=== PATIENT | female | born 1990 | race Caucasian/White ===

== ENCOUNTER 2017-12-08 11:37 | Emergency (ER) | payer OTHER ==
[2017-12-08] MEDS ORDERED: Sodium Chloride 0.9% 1000 ML 1,000 ML IV STA (12:01)
--- NOTE | 2017-12-08 12:08 | ERPHSYRPT ---
- History of Present Illness Time Seen by Provider: 12/08/17 12:02 Source: patient Exam Limitations: no limitations Physician History: 27-year-old white female with history of chronic back and neck pain history of headaches who has seen Dr. ibarra for neck pain and back pain and has had a MRI several months ago. Also with a history of chronic right-sided weakness again which has been worked up by Dr. ibarra. Arrives with complaint of a headache symptoms going on for several days she states she's had a fever she has no vomiting no photophobia Patient states she had a fever at home She presented to Dr. Bermudez's office was noted to have a temperature around 98 Sent here for further workup. Past medical history includes chronic back and neck pain for several months weakness in the right side or several months Headaches Past surgical history includes . Timing/Duration: day(s) (2-3 days) Severity: moderate Modifying Factors: Improves With: nothing Associated Symptoms: fever, headaches, other (chronic right-sided weakness, chronic back and neck pain), No denies symptoms, No nausea, No vomiting, No abdominal pain, No shortness of breath, No heartburn, No diaphoresis, No cough, No chills, No chest pain, No loss of appetite, No malaise, No rash, No syncope, No seizure, No weakness Allergies/Adverse Reactions: No Known Drug Allergies Allergy (Verified 12/08/17 11:52) Home Medications: Gabapentin 800 mg PO TID 12/08/17 [History] Meloxicam 15 mg [Meloxicam 15 MG] 15 mg PO UD 12/08/17 [History] Sumatriptan Succinate [Imitrex] 100 mg PO UD 12/08/17 [History] Tizanidine HCl 4 mg PO DAILY 12/08/17 [History] Topiramate 50 mg PO BID 12/08/17 [History] Hx Tetanus, Diphtheria Vaccination/Date Given: No Hx Influenza Vaccination/Date Given: No Hx Pneumococcal Vaccination/Date Given: No - Review of Systems Constitutional: Fever, No Chills, No Fatigue, No Lethargy, No Night Sweats, No Weakness, No Weight Loss Eyes: No Symptoms Ears, Nose, & Throat: No Symptoms Respiratory: No Cough, No Dyspnea Cardiac: No Chest Pain, No Edema, No Syncope Abdominal/Gastrointestinal: No Abdominal Pain, No Nausea, No Vomiting, No Diarrhea Genitourinary Symptoms: No Dysuria Musculoskeletal: Back Pain (chronic back pain), Neck Pain (Chronic neck pain), No Deformity, No Fall, No Injury, No Joint Redness, No Joint Pain, No Joint Swelling, No Myalgias Skin: No Rash Neurological: Headache, Other (Chronic neck and back pain, chronic right upper extremity weakness 2-3 months) Psychological: No Symptoms Endocrine: No Symptoms All Other Systems: Reviewed and Negative - Past Medical History Pertinent Past Medical History: No Neurological History: Other (chronic right upper extremity weakness, headaches) Musculoskeletal History: Other (chronic back and neck pain) - Past Surgical History Past Surgical History: Yes Female Surgical History: Section - Social History Smoking Status: Never smoker Exposure to second hand smoke: No Drug Use: none Patient Lives Alone: No - Nursing Vital Signs Nursing Vital Signs: Initial Vital Signs Blood Pressure 116/82 12/08/17 11:40 Pain Scale Pain Intensity 4 - Physical Exam General Appearance: no apparent distress, alert Eye Exam: PERRL/EOMI, eyes nml inspection Ears, Nose, Throat Exam: normal ENT inspection, TMs normal, pharynx normal, moist mucous membranes Neck Exam: normal inspection, non-tender, other (patient states neck chronically painfull with movement) Respiratory Exam: normal breath sounds, lungs clear, No respiratory distress Cardiovascular Exam: regular rate/rhythm, normal heart sounds, normal peripheral pulses Gastrointestinal/Abdomen Exam: soft, normal bowel sounds, No tenderness, No mass Back Exam: normal inspection, normal range of motion, No CVA tenderness, No vertebral tenderness Extremity Exam: normal inspection, normal range of motion, pelvis stable Neurologic Exam: alert, oriented x 3, cooperative, 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), No motor deficits Skin Exam: normal color, warm, dry, No rash SpO2 Interpretation: normal (97%), borderline oxygenation SpO2: 97 Oxygen Delivery: Room Air - Course Nursing assessment & vital signs reviewed: Yes - CT Exams Head CT Interpretation: Discussed w/radiologist (CT head without contrast: Impression : No acute intracranial abnormality is seen) Ordered Tests: Active Orders 24 hr Category Date Time Status IV Insertion STAT Care 12/08/17 12:01 Active HEAD WITHOUT CONTRAST [CT] Stat Exams 12/08/17 13:06 Completed BLOOD CULTURE Stat Lab 12/08/17 12:25 Received CBC W DIFF Stat Lab 12/08/17 12:15 Completed CMP Stat Lab 12/08/17 12:15 Completed CULTURE,URINE Routine Lab 12/08/17 12:30 Received HCG QUALITATIVE,SERUM Stat Lab 12/08/17 12:15 Completed UA W/RFX UR CULTURE Stat Lab 12/08/17 12:10 Completed Urine Triage Profile Stat Lab 12/08/17 12:10 Completed Medication Summary Discontinued Medications Generic Name Dose Route Start Last Admin Trade Name Freq PRN Reason Stop Dose Admin Diphenhydramine HCl 25 mg 12/08/17 13:06 12/08/17 13:24 Benadryl 50 Mg/Ml IV 12/08/17 13:07 25 mg STAT ONE Administration Diphenhydramine HCl Confirm 12/08/17 13:22 Benadryl 50 Mg/Ml Administered 12/08/17 13:23 Dose 50 mg .ROUTE .STK-MED ONE Sodium Chloride 1,000 mls @ 999 mls/hr 12/08/17 12:01 12/08/17 12:23 Sodium Chloride 0.9% 1000 Ml IV 12/08/17 13:01 999 mls/hr .Q1H1M STA Administration Sodium Chloride Confirm 12/08/17 12:22 Sodium Chloride 0.9% 1000 Ml Administered 12/08/17 12:23 Dose 1,000 mls @ ud .ROUTE .STK-MED ONE Metoclopramide HCl 10 mg 12/08/17 13:06 12/08/17 13:24 Reglan 10 Mg/2 Ml IV 12/08/17 13:07 10 mg STAT ONE Administration Metoclopramide HCl Confirm 12/08/17 13:22 Reglan 10 Mg/2 Ml Administered 12/08/17 13:23 Dose 10 mg .ROUTE .STK-MED ONE Lab/Rad Data: Laboratory Result Diagrams 12/08/17 12:15 12/08/17 12:15 Laboratory Results 12/08/17 12/08/17 12/08/17 Range/Units 12:20 12:15 12:15 WBC (4.0-10.5) K/mm3 RBC (4.1-5.4) M/mm3 Hgb (12.0-16.0) gm/dl Hct (35-47) % MCV (78-100) fl MCH (26-32) pg MCHC (32-36) g/dl RDW (11.5-14.0) % Plt Count (150-450) K/mm3 MPV (6-9.5) fl Gran % (36.0-66.0) % Eos # (Auto) (0-0.5) Absolute Lymphs (auto) (1.0-4.6) Absolute Monos (auto) (0.0-1.3) Lymphocytes % (24.0-44.0) % Monocytes % (0.0-12.0) % Eosinophils % (0.00-5.0) % Basophils % (0.0-0.4) % Absolute Granulocytes (1.4-6.9) Basophils # (0-0.4) Sodium 141 (137-145) mmol/L Potassium 3.5 (3.5-5.1) mmol/L Chloride 100 (98-107) mmol/L Carbon Dioxide 26 (22-30) mmol/L Anion Gap 18.5 H (5-15) MEQ/L BUN 10 (7-17) mg/dL Creatinine 0.95 (0.52-1.04) mg/dL Estimated GFR > 60.0 ML/MIN Glucose 110 H (74-106) mg/dL Calcium 9.8 (8.4-10.2) mg/dL Total Bilirubin 0.60 (0.2-1.3) mg/dL AST 22 (14-36) U/L ALT 17 (0-35) U/L Alkaline Phosphatase 75 (38-126) U/L Serum Total Protein 8.6 H (6.3-8.2) g/dL Albumin 5.1 H (3.5-5.0) g/dL Serum , Qual NEGATIVE (Negative) Ur Collection Type Urine Color (YELLOW) Urine Appearance (CLEAR) Urine pH (5-6) Ur Specific [place] (1.005-1.025) Urine Protein (Negative) Urine Ketones (NEGATIVE) Urine Blood (0-5) Nitin/ul Urine Nitrite (NEGATIVE) Urine Bilirubin (NEGATIVE) Urine Urobilinogen (0-1) mg/dL Ur Leukocyte Esterase (NEGATIVE) Urine WBC (Auto) (0-5) /HPF U Epithel Cells (Auto) (FEW) /HPF Urine Bacteria (Auto) (NEGATIVE) /HPF Urine Mucus (Auto) (NEGATIVE) /HPF Urine Culture Reflexed (NO) Urine Glucose (NEGATIVE) mg/dL Urine Opiates Level (NEGATIVE) Ur Methadone (NEGATIVE) Urine Barbiturates (NEGATIVE) Ur Phencyclidine (PCP) (NEGATIVE) Urine Amphetamine (NEGATIVE) U Benzodiazepine Level (NEGATIVE) Urine Cocaine (NEGATIVE) Urine Marijuana (THC) (NEGATIVE) Group A Strep Antibody NEGATIVE (NEGATIVE) 12/08/17 12/08/17 12/08/17 Range/Units 12:15 12:10 12:10 WBC 13.0 H (4.0-10.5) K/mm3 RBC 4.76 (4.1-5.4) M/mm3 Hgb 15.6 (12.0-16.0) gm/dl Hct 46.1 (35-47) % MCV 96.8 (78-100) fl MCH 32.8 H (26-32) pg MCHC 33.8 (32-36) g/dl RDW 12.4 (11.5-14.0) % Plt Count 196 (150-450) K/mm3 MPV 11.3 H (6-9.5) fl Gran % 85.7 H (36.0-66.0) % Eos # (Auto) 0 (0-0.5) Absolute Lymphs (auto) 0.79 L (1.0-4.6) Absolute Monos (auto) 1.05 (0.0-1.3) Lymphocytes % 6.1 L (24.0-44.0) % Monocytes % 8.1 (0.0-12.0) % Eosinophils % 0.0 (0.00-5.0) % Basophils % 0.1 (0.0-0.4) % Absolute Granulocytes 11.13 H (1.4-6.9) Basophils # 0.01 (0-0.4) Sodium (137-145) mmol/L Potassium (3.5-5.1) mmol/L Chloride (98-107) mmol/L Carbon Dioxide (22-30) mmol/L Anion Gap (5-15) MEQ/L BUN (7-17) mg/dL Creatinine (0.52-1.04) mg/dL Estimated GFR ML/MIN Glucose (74-106) mg/dL Calcium (8.4-10.2) mg/dL Total Bilirubin (0.2-1.3) mg/dL AST (14-36) U/L ALT (0-35) U/L Alkaline Phosphatase (38-126) U/L Serum Total Protein (6.3-8.2) g/dL Albumin (3.5-5.0) g/dL Serum , Qual (Negative) Ur Collection Type CLEAN CATCH Urine Color STRAW (YELLOW) Urine Appearance CLOUDY (CLEAR) Urine pH 7.0 (5-6) Ur Specific [place] 1.002 (1.005-1.025) Urine Protein NEGATIVE (Negative) Urine Ketones NEGATIVE (NEGATIVE) Urine Blood SMALL (0-5) Nitin/ul Urine Nitrite NEGATIVE (NEGATIVE) Urine Bilirubin NEGATIVE (NEGATIVE) Urine Urobilinogen 2 (0-1) mg/dL Ur Leukocyte Esterase NEGATIVE (NEGATIVE) Urine WBC (Auto) 0-2 (0-5) /HPF U Epithel Cells (Auto) MODERATE (FEW) /HPF Urine Bacteria (Auto) MANY (NEGATIVE) /HPF Urine Mucus (Auto) SLIGHT (NEGATIVE) /HPF Urine Culture Reflexed NO (NO) Urine Glucose NEGATIVE (NEGATIVE) mg/dL Urine Opiates Level NEGATIVE (NEGATIVE) Ur Methadone NEGATIVE (NEGATIVE) Urine Barbiturates NEGATIVE (NEGATIVE) Ur Phencyclidine (PCP) NEGATIVE (NEGATIVE) Urine Amphetamine NEGATIVE (NEGATIVE) U Benzodiazepine Level NEGATIVE (NEGATIVE) Urine Cocaine NEGATIVE (NEGATIVE) Urine Marijuana (THC) NEGATIVE (NEGATIVE) Group A Strep Antibody (NEGATIVE) - Progress Progress: improved Progress Note: 12/08/17 13:07 27-year-old white female with history of chronic neck and back pain history of migraines Complaining of a headache for 3 days she states she's had a fever at home no fever here in the emergency room appears to be stable. 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 Loving for headaches neck pain back pain and her right starch factory laborer weakness. She was seen at Dr. Pollock's office she stated that she had a high fever at home however she has been afebrile here temperature is 99.1 vitals are stable. CBC CMP hCG UA have been ordered on this patient. She states she isn't sure if she is better after receiving IV fluids Will add Reglan 10 mg and Benadryl 25 mg IV. Will obtain head CT on this patient. 12/08/17 14:[address] within normal limits no acute changes Patient's chemistry sodium 141 potassium 3.5 chloride 100 bicarbonate 26 BUN 10 creatinine 0.95 glucose 110 HCG is negative CBC white count mildly elevated 13.0 hemoglobin 15.6 hematocrit 46.1 platelets 196 Urinalysis specific gravity 1.002 pH 7.0. Urine drug screen is negative. Patient has been stable since arrival she is afebrile she states she is feeling better after Reglan and Benadryl. I've discussed the patient's case with Dr. pollock Will plan to release patient home she is to take her medications as prescribed by Dr. ibarra/Dr. Pollock. She is to contact Dr. Pollock office to arrange follow-up. - Departure Time of Disposition: 15:20 Departure Disposition: Home Clinical Impression: History of migraine, history of chronic rightue weakness, Neck pain, history of chronic back / neck pain, Fever at home Headache Qualifiers: Headache type: unspecified Headache chronicity pattern: acute headache Intractability: not intractable Qualified Code(s): R51 - Headache Condition: Fair Critical Care Time: No Referrals: PER POLLOCK [Primary Care Provider] - Additional Instructions: Return home. Plenty of fluids. Continue medications as prescribed by Dr. ibarra/your family doctor (Dr. Pollock) Follow-up with Dr. Pollock called and arrange follow-up appointment. Return for acute distress or for severe symptoms.
[2017-12-08] MEDS ORDERED: Sodium Chloride 0.9% 1000 ML 1,000 ML ONE (12:22)
[2017-12-08 12:42] LABS: BASOPHIL % 0.1 % (0.0-0.4); Basophil (Absolute #) 0.01 (0-0.4); Eosinophil (Absolute #) 0 (0-0.5); Granulocyte Absolute (ANC) 11.13 (1.4-6.9); Granulocytes % 85.7 % (36.0-66.0); Hematocrit 46.1 % (35-47); Hemoglobin 15.6 gm/dl (12.0-16.0); Lymphocyte (Absolute #) 0.79 (1.0-4.6); Lymphocytes % 6.1 % (24.0-44.0); Mean Cell Volume 96.8 fl (78-100); Mean Corpuscular Hemoglobin 32.8 pg (26-32); Mean Corpuscular Hgb Concent. 33.8 g/dl (32-36); Mean Platelet Volume 11.3 fl (6-9.5); Monocyte (Absolute #) 1.05 (0.0-1.3); Monocytes % 8.1 % (0.0-12.0); Platelet Count 196 K/mm3 (150-450); Red Blood Count 4.76 M/mm3 (4.1-5.4); Red Cell Distribution Width 12.4 % (11.5-14.0)
[2017-12-08 12:42] LABS: Appearance CLOUDY (CLEAR); Bilirubin NEGATIVE (NEGATIVE); Blood SMALL Ery/ul (0-5); Glucose NEGATIVE (NEGATIVE); Ketones NEGATIVE (NEGATIVE); Leukocyte Esterase NEGATIVE (NEGATIVE); Nitrite NEGATIVE (NEGATIVE); Protein,Urine Dip NEGATIVE (Negative); Specific Gravity 1.002 (1.005-1.025); Urobilinogen 2 mg/dL (0-1)
[2017-12-08 12:59] LABS: Amphetamine,Urine NEGATIVE (NEGATIVE); Barbiturate,Urine NEGATIVE (NEGATIVE); Benzodiazepine,Urine NEGATIVE (NEGATIVE); Cocaine,Urine NEGATIVE (NEGATIVE); Methadone,Urine NEGATIVE (NEGATIVE); Opiate,Urine NEGATIVE (NEGATIVE); PCP,Urine NEGATIVE (NEGATIVE); THC,Urine NEGATIVE (NEGATIVE)
[2017-12-08] MEDS ORDERED: Reglan 10 MG/2 ML IV ONE (13:06)
[2017-12-08] MEDS ORDERED: BENADRYL 50 MG/ML IV ONE (13:06)
[2017-12-08] MEDS ORDERED: Reglan 10 MG/2 ML ONE (13:22)
[2017-12-08] MEDS ORDERED: BENADRYL 50 MG/ML ONE (13:22)
[2017-12-08 13:55] LABS: ALBUMIN 5.1 g/dL (3.5-5.0); ALKALINE PHOSPHATASE 75 U/L (38-126); BLOOD UREA NITROGEN 10 mg/dL (7-17); CHLORIDE 100 mmol/L (98-107); Calcium 9.8 mg/dL (8.4-10.2); Carbon Dioxide 26 mmol/L (22-30); Creatinine 1 0.95 mg/dL (0.52-1.04); Glucose 110 mg/dL (74-106); SGOT/AST 22 U/L (14-36); SGPT/ALT 17 U/L (0-35); SODIUM 141 mmol/L (137-145); Total Protein 8.6 g/dL (6.3-8.2)
[2017-12-08 13:56] LABS: Potassium 3.5 mmol/L (3.5-5.1)
[2017-12-08 13:58] LABS: ANION GAP 18.5 MEQ/L (5-15)
--- NOTE | 2017-12-08 14:20 | XRAY ---
Exam: CT of the head without IV contrast from 12/08/2017. CTDI: 70.91. Comparison: None. Indication: 27-year-old female with headache for 2 months, no known injury. Technique: Non-IV contrast axial images were obtained through the brain. Reconstructed coronal and sagittal images were created and reviewed. The axial images were repeated because of motion artifact on the initial CT run. Findings: The ventricles appear of normal size and shape. No focal mass effect or midline shift is seen. No acute intracranial bleed or abnormal extra-axial fluid collection is seen. The [place] matter-white matter interfaces appear well-maintained. No low attenuation territorial infarct is seen. The cortical sulci and basilar cisterns appear unremarkable. The globes of each eye and retrobulbar regions appear unremarkable. The visualized paranasal sinuses and mastoid air cells appear clear. The calvarium of the skull is intact. Impression: 1. No acute intracranial abnormality is seen.
[2017-12-08 14:38] VITALS: PULSE 74
[2017-12-08 14:53] VITALS: O2SAT 97
[2017-12-08 15:17] VITALS: BP 119/77
== END 2017-12-08 15:25 | disposition home or self-care (01) ==
LOC: ED 11:37
DX: R51 Headache (principal); M54.2 Cervicalgia; Z79.899 Other long term (current) drug therapy; R53.1 Weakness; M54.9 Dorsalgia, unspecified
CPT/HCPCS: 36000; 36415; 70450; 80053; 80307; 81003; 84703; 85025; 87040; 87086; 87651; 96360; 96374; 96375; 99284; J1200

== ENCOUNTER 2024-05-09 15:27 | Emergency (ER) | payer OTHER ==
[2024-05-09 15:36] VITALS: TEMP 98.3
--- NOTE | 2024-05-09 15:55 | ERPHSYRPT ---
- History of Present Illness Time Seen by Provider: 05/09/24 15:40 Source: patient Exam Limitations: no limitations Patient Subjective Stated Complaint: Pt states "I went to Dr. Tineo, my family , because I have been having chest pain for the past month but the last week it has been constant and is like pressure. It feels like I got punched in the chest." Triage Nursing Assessment: Pt presented alert and oriented X 3, skin pwd. Pt ambulates with an upright steady gait, able to speak in clear full sentences. Pt resting comfortably on the bed. Physician History: 34-year-old female presents to our ED as a referral from her primary care doctor's office for evaluation of intermittent chest pain x 1 month. Patient states the pain has been constant for the past week. Pain described as a pressure primarily in the epigastric region. Sometimes it feels as though she got punched in the chest. Symptoms are localized. No radiation. No associated nausea vomiting or diaphoresis. No trauma no fever. No active chest pain at this time. Patient otherwise feels well. She voices no other complaints or concerns at this time. Portions of this note were created with voice recognition technology. There may be grammatical, spelling, punctuation or sound alike errors Timing/Duration: week(s) (1 month) Severity: moderate Modifying Factors: Improves With: nothing Associated Symptoms: denies symptoms Allergies/Adverse Reactions: No Known Drug Allergies Allergy (Verified 12/08/17 11:52) Home Medications: No Reportable Medications [No Reported Medications] 05/09/24 [History] Hx Tetanus, Diphtheria Vaccination/Date Given: No Hx Influenza Vaccination/Date Given: No Hx Pneumococcal Vaccination/Date Given: No Immunizations Up to Date: No Travel Risk - International Travel Have you traveled outside of the country in past 3 weeks: No - Emerging Infectious Disease Are you exhibiting symptoms associated with any current EIDs: No - Review of Systems Constitutional: No Symptoms, No Fever, No Chills Eyes: No Symptoms Ears, Nose, & Throat: No Symptoms Respiratory: No Symptoms, No Cough, No Dyspnea Cardiac: No Symptoms, No Chest Pain, No Edema, No Syncope Abdominal/Gastrointestinal: No Symptoms, No Abdominal Pain, No Nausea, No Vomiting, No Diarrhea Genitourinary Symptoms: No Symptoms, No Dysuria Musculoskeletal: No Symptoms, No Back Pain, No Neck Pain Skin: No Symptoms, No Rash Neurological: No Symptoms, No Dizziness, No Focal Weakness, No Sensory Changes Psychological: No Symptoms Endocrine: No Symptoms Hematologic/Lymphatic: No Symptoms Immunological/Allergic: No Symptoms All Other Systems: Reviewed and Negative - Past Medical History Pertinent Past Medical History: No Neurological History: No Pertinent History Cardiac History: No Pertinent History Respiratory History: No Pertinent History Endocrine Medical History: No Pertinent History Musculoskeletal History: Degenerative Disk Disease, Other Psycho-Social History: Depression Other Medical History: XRAYS SHOW SCOLIOSIS RIGHT WITH APEX T12, 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 UTERINE IUD, SEASONAL ALLERGIES, CARPAL TUNNEL RELEASE RIGHT - Past Surgical History Past Surgical History: Yes Female Surgical History: Section - Female History Hx Last Menstrual Period: years, IUD Hx Now: No - Social History Smoking Status: Never smoker Exposure to second hand smoke: No Drug Use: none - Social Determinants of Health Will the patient participate in the screening: Yes Do you worry about a steady place to live?: No Do you have any problems with any of the following?: No known problems In the past 12 months,have you had to go without utilities?: No Transportation Issues: Yes Has anyone in your support network made you feel unsafe?: No Have you or anyone in your house had to go w/o enough food: No - Nursing Vital Signs Nursing Vital Signs: Initial Vital Signs Temperature 98.3 F 05/09/24 15:29 Pulse Rate 74 05/09/24 15:29 Respiratory Rate 18 05/09/24 15:29 Blood Pressure 124/86 05/09/24 15:29 O2 Sat by Pulse Oximetry 96 05/09/24 15:29 Pain Scale Pain Intensity 0 - Physical Exam General Appearance: no apparent distress, alert Eye Exam: PERRL/EOMI, eyes nml inspection Ears, Nose, Throat Exam: normal ENT inspection, pharynx normal, moist mucous membranes Neck Exam: normal inspection, non-tender, supple, full range of motion Respiratory Exam: normal breath sounds, lungs clear, airway intact, No respiratory distress Cardiovascular Exam: regular rate/rhythm, normal heart sounds, normal peripheral pulses Gastrointestinal/Abdomen Exam: soft, normal bowel sounds, No tenderness, No mass Back Exam: normal inspection, normal range of motion, No CVA tenderness, No vertebral tenderness Extremity Exam: normal inspection, normal range of motion, pelvis stable Neurologic Exam: alert, oriented x 3, cooperative, normal mood/affect, nml cerebellar function, nml station & gait, sensation nml, No motor deficits Skin Exam: normal color, warm, dry, No rash Lymphatic Exam: No adenopathy SpO2 Interpretation: normal SpO2: 96 O2 Delivery: Room Air - Course Nursing assessment & vital signs reviewed: Yes EKG Interpreted by Me: RATE (73), Sinus Rhythm, NORMAL AXIS, NORMAL INTERVALS, NORMAL QRS - Radiology Exams Chest X-ray Interpretation: Interpreted by me (No acute findings) Ordered Tests: Active Orders 24 hr Category Date Time Status Mooner STAT Care 05/09/24 15:54 Active EKG-ER Only STAT Care 05/09/24 15:53 Active IV Insertion STAT Care 05/09/24 15:53 Active Pulse Oximetry (ED) STAT Care 05/09/24 15:53 Active CHEST 1 VIEW (PORTABLE) Stat Exams 05/09/24 17:05 Taken CBC W DIFF Stat Lab 05/09/24 15:52 Completed CMP Stat Lab 05/09/24 15:52 Completed D-DIMER QUANTITATIVE Stat Lab 05/09/24 15:52 Completed HCG QUALITATIVE, URINE Stat Lab 05/09/24 Ordered NT PRO BNPII Stat Lab 05/09/24 15:52 Completed TROPONIN Q4H Lab 05/09/24 15:52 Completed TROPONIN Q4H Lab 05/09/24 18:57 Completed TROPONIN Q4H Lab 05/10/24 00:00 Ordered Lab/Rad Data: Laboratory Result Diagrams 05/09/24 15:52 05/09/24 15:52 Laboratory Results 05/09/24 05/09/24 05/09/24 Range/Units 18:57 15:52 15:52 WBC (3.98-10.04) x10^3/uL RBC (3.93-5.22) x10^6/uL Hgb (11.2-15.7) g/dL Hct (34.1-44.9) % MCV (79.4-94.8) fL MCH (25.6-32.2) pg MCHC (32.2-35.5) g/dL RDW (11.7-14.4) % Plt Count (182-369) x10^3/uL MPV (9.4-12.3) fL Gran % (34.0-71.1) % Immature Gran % (Auto) (0.001-0.429) % Nucleat RBC Rel Count (0.00-0.2) % Eos # (Auto) (0.04-0.36) x10^3/uL Immature Gran # (Auto) (0.001-0.031) x10^3u/L Absolute Lymphs (auto) (1.18-3.74) x10^3/uL Absolute Monos (auto) (0.24-0.86) x10^3/uL Absolute Nucleated RBC (0.00-0.012) x10^3u/L Lymphocytes % (19.3-51.7) % Monocytes % (4.7-12.5) % Eosinophils % (0.7-5.8) % Basophils % (0.1-1.2) % Absolute Granulocytes (1.56-6.13) x10^3/uL Basophils # (0.01-0.08) x10^3/uL D-Dimer 0.29 (0.0-0.50) mg/L Sodium (135-145) mmol/L Potassium (3.5-5.1) mmol/L Chloride (98-107) mmol/L Carbon Dioxide (22-30) mmol/L Anion Gap (5-15) MEQ/L BUN (7-17) mg/dL Creatinine (0.52-1.04) mg/dL Estimated GFR ML/MIN Glucose (74-106) mg/dL Calcium (8.4-10.2) mg/dL Total Bilirubin (0.2-1.3) mg/dL AST (14-36) U/L ALT (0-35) U/L Alkaline Phosphatase (38-126) U/L Troponin I < 0.012 < 0.012 (0.000-0.033) ng/mL NT-Pro-B Natriuret Pep 37.0 (<300) pg/mL Serum Total Protein (6.3-8.2) g/dL Albumin (3.5-5.0) g/dL 05/09/24 05/09/24 Range/Units 15:52 15:52 WBC 9.0 (3.98-10.04) x10^3/uL RBC 4.11 (3.93-5.22) x10^6/uL Hgb 13.4 (11.2-15.7) g/dL Hct 38.7 (34.1-44.9) % MCV 94.2 (79.4-94.8) fL MCH 32.6 H (25.6-32.2) pg MCHC 34.6 (32.2-35.5) g/dL RDW 12.0 (11.7-14.4) % Plt Count 224 (182-369) x10^3/uL MPV 11.0 (9.4-12.3) fL Gran % 72.4 H (34.0-71.1) % Immature Gran % (Auto) 0.2 (0.001-0.429) % Nucleat RBC Rel Count 0.0 (0.00-0.2) % Eos # (Auto) 0.04 (0.04-0.36) x10^3/uL Immature Gran # (Auto) 0.02 (0.001-0.031) x10^3u/L Absolute Lymphs (auto) 1.88 (1.18-3.74) x10^3/uL Absolute Monos (auto) 0.54 (0.24-0.86) x10^3/uL Absolute Nucleated RBC 0.00 (0.00-0.012) x10^3u/L Lymphocytes % 20.9 (19.3-51.7) % Monocytes % 6.0 (4.7-12.5) % Eosinophils % 0.4 L (0.7-5.8) % Basophils % 0.1 (0.1-1.2) % Absolute Granulocytes 6.52 H (1.56-6.13) x10^3/uL Basophils # 0.01 (0.01-0.08) x10^3/uL D-Dimer (0.0-0.50) mg/L Sodium 142 (135-145) mmol/L Potassium 3.8 (3.5-5.1) mmol/L Chloride 102 (98-107) mmol/L Carbon Dioxide 28 (22-30) mmol/L Anion Gap 15.0 (5-15) MEQ/L BUN 10 (7-17) mg/dL Creatinine 0.83 (0.52-1.04) mg/dL Estimated GFR 93.6 ML/MIN Glucose 121 H (74-106) mg/dL Calcium 10.0 (8.4-10.2) mg/dL Total Bilirubin 0.70 (0.2-1.3) mg/dL AST 24 (14-36) U/L ALT 23 (0-35) U/L Alkaline Phosphatase 54 (38-126) U/L Troponin I (0.000-0.033) ng/mL NT-Pro-B Natriuret Pep (<300) pg/mL Serum Total Protein 7.4 (6.3-8.2) g/dL Albumin 4.8 (3.5-5.0) g/dL - Progress Progress: improved Progress Note: Patient's heart score is a 1. Patient reassessed. No active chest pain. D- dimer negative. Chest x-ray negative for acute pathology. Troponin negative x 2. Vital stable. EKG normal sinus rhythm. No indication for further workup will discharge home. Patient agrees to follow-up with her primary care doctor within 48 hours for reevaluation. Portions of this note were created with voice recognition technology. There may be grammatical, spelling, punctuation or sound alike errors Complexity of problem addressed is moderate acute complicated no critical care time. Complex of data reviewed analyzes moderate. Test ordered chest reviewed results analyzed and correlated clinically with history and physical exam. Risk of complication and or risk of morbidity/mortality of patient management is low. Vital stable. Time spent to discharge patient approximately 15 minutes. Plan of care established for shared decision making. No social determinants of health present to impede follow-up. Portions of this note were created with voice recognition technology. There may be grammatical, spelling, punctuation or sound alike errors 05/09/24 20:03 Counseled pt/family regarding: lab results, diagnosis, need for follow-up, rad results - Departure Departure Disposition: Home Clinical Impression: Chest pain Condition: Stable Critical Care Time: No Referrals: NEGRA REARDON [Primary Care Provider] - Follow up/PCP as directed Additional Instructions: Discharge/Care Plan RALPHBILLY LUCIANO was seen on 05/09/24 in the Emergency Room. The patient was counseled regarding Diagnosis,Lab results, Imaging studies, need for follow up and when to return to the Emergency Room. Prescriptions given: Discharge Note I have spoken with the patient and/or caregivers. I have explained the patient's condition, diagnosis and treatment plan based on the information available to me at this time. I have answered the patient's and/or caregiver's questions and addressed any concerns. The patient and/or caregivers have as good understanding of the patient's diagnosis, condition and treatment plan as can be expected at this point. The vital signs have been stable. The patient's condition is stable and appropriate for discharge from the emergency department. The patient will pursue further outpatient evaluation with the primary care physician or other designated or consulting physician as outlined in the discharge instructions. The patient and/or caregivers are agreeable to this plan of care and follow-up instructions have been explained in detail. The patient and/or caregivers have received these instruction. The patient/and or caregivers are aware that any significant change in condition or worsening of symptoms should prompt an immediate return to this or the closest emergency department or call 911.
[2024-05-09 15:59] LABS: Absolute Neutrophil Ct (ANC) 6.52 x10^3/uL (1.56-6.13); BASOPHIL % 0.1 % (0.1-1.2); Basophil (Absolute #) 0.01 x10^3/uL (0.01-0.08); Eosinophil % 0.4 % (0.7-5.8); Eosinophil (Absolute #) 0.04 x10^3/uL (0.04-0.36); Hematocrit 38.7 % (34.1-44.9); Hemoglobin 13.4 g/dL (11.2-15.7); IMMATURE GRAN # 0.02 x10^3u/L (0.001-0.031); IMMATURE GRAN % 0.2 % (0.001-0.429); Lymphocyte (Absolute #) 1.88 x10^3/uL (1.18-3.74); Lymphocytes % 20.9 % (19.3-51.7); Mean Cell Volume 94.2 fL (79.4-94.8); Mean Corpuscular Hemoglobin 32.6 pg (25.6-32.2); Mean Corpuscular Hgb Concent. 34.6 g/dL (32.2-35.5); Monocyte (Absolute #) 0.54 x10^3/uL (0.24-0.86); Neutrophil % 72.4 % (34.0-71.1); Platelet Count 224 x10^3/uL (182-369); Red Blood Count 4.11 x10^6/uL (3.93-5.22)
[2024-05-09 16:10] LABS: ALBUMIN 4.8 g/dL (3.5-5.0); BILIRUBIN,TOTAL 0.7 mg/dL (0.2-1.3); Creatinine 1 0.83 mg/dL (0.52-1.04); EST GLOMERULAR FILTRATION RATE 93.6 ML/MIN; Potassium 3.8 mmol/L (3.5-5.1); Total Protein 7.4 g/dL (6.3-8.2)
[2024-05-09 16:22] LABS: TROPONIN < 0.012 ng/mL (0.000-0.033)
[2024-05-09 19:05] VITALS: O2SAT 96
[2024-05-09 20:07] VITALS: BP 123/71; PULSE 64; RESP 20
--- NOTE | 2024-05-10 08:32 | XRAY ---
Indication: Pain. Comparison: January 19, 2019 Portable chest less inflated accentuating cardiopulmonary structures. No focal infiltrate, consolidation, or large effusion. Heart not enlarged. Bony thorax intact again with mild scoliosis. Impression: Continued nonacute chest.
== END 2024-05-09 20:12 | disposition home or self-care (01) ==
LOC: ED 15:27
DX: R07.9 Chest pain, unspecified (principal)
CPT/HCPCS: 36415; 71045; 80053; 83880; 84484; 85025; 85379; 93005; 93041; 94760; 99284; 99285